=== PATIENT | female | born 1945 | race Caucasian/White ===

== ENCOUNTER 2021-01-17 16:45 | Outpatient (RCR) | payer MEDICARE, SELFPAY ==
[2021-01-17] MEDS: COVID-19 VACC, MRNA(PFIZER)/PF 30 MCG/0.3 ML SYRINGE IM (08:10)
[2021-02-07] MEDS: COVID-19 VACC, MRNA(PFIZER)/PF 30 MCG/0.3 ML SYRINGE IM (08:11)
== END 2021-04-16 23:59 ==
LOC: IMMUN 16:45
PROVIDERS: PCP Family Medicine; Visit Provider Family Medicine
DX: Z23 Encounter for immunization (principal)
CPT/HCPCS: 0001A; 0002A; 91300